=== PATIENT | female | born 2000 | race African-American/Black ===

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

== ENCOUNTER 2020-01-05 12:45 | Emergency (ER) | payer OTHER ==
[~2020-01-05] VITALS: Ht 165.1 cm; Wt 49.0 kg
[~2020-01-05 12:45] MED LIST changes: +AZITHROMYCIN 2250 MG PO
[2020-01-05 12:47] VITALS: BP 124/65
[2020-01-05 13:31] LABS: URINE BILIRUBIN NEGATIVE (Negative); URINE BLOOD TRACE (Negative); URINE CLARITY SL CLOUDY; URINE COLOR YELLOW; URINE GLUCOSE-RANDOM* NEGATIVE (Negative); URINE KETONES 1+ (Negative); URINE NITRITE-REFLEX NEGATIVE (Negative); URINE PROTEIN (DIPSTICK) TRACE (Negative)
[2020-01-05 13:34] LABS: URINE LEUKOCYTES-REFLEX 3+ (Negative)
[2020-01-05] MEDS ORDERED: DIFLUCAN150 MG PO (13:37)
[2020-01-05] MEDS ORDERED: MACROBID 100 M100 M1 PO (13:37)
[2020-01-05 13:44] LABS: SQUAMOUS >10 Many /LPF (0-3)
[2020-01-05 13:45] LABS: BACTERIA-REFLEX >30 Many /HPF (None Seen); CASTS None Seen /LPF (None Seen); URINE RBC 0-2 Rare /HPF (0-2); URINE WBC-REFLEX >25 Many /HPF (0-5); YEAST-REFLEX Present (None Seen)
[2020-01-05 13:46] LABS: CRYSTALS None Seen /LPF (None Seen)
== END 2020-01-05 13:40 | disposition home or self-care (01) ==
LOC: ER 12:45
PROVIDERS: Physician Assistant
DX: B37.3 Candidiasis of vulva and vagina (principal); N39.0 Urinary tract infection, site not specified; Z79.2 Long term (current) use of antibiotics

== ENCOUNTER 2020-05-05 18:40 | Emergency (ER) | payer OTHER ==
[~2020-05-05] VITALS: Ht 165.1 cm; Wt 52.2 kg
[~2020-05-05 18:40] MED LIST changes: +MACROBID 100 M100 M1 PO
[2020-05-05 19:04] LABS: URINE BILIRUBIN NEGATIVE (Negative); URINE BLOOD NEGATIVE (Negative); URINE CLARITY CLEAR; URINE COLOR YELLOW; URINE GLUCOSE-RANDOM* NEGATIVE (Negative); URINE KETONES NEGATIVE (Negative); URINE LEUKOCYTES-REFLEX TRACE (Negative); URINE NITRITE-REFLEX NEGATIVE (Negative); URINE PROTEIN (DIPSTICK) TRACE (Negative)
[2020-05-05 20:03] VITALS: BP 121/68
== END 2020-05-05 20:03 | disposition home or self-care (01) ==
LOC: ER 18:40
PROVIDERS: Physician Assistant
DX: N76.0 Acute vaginitis (principal); Z79.899 Other long term (current) drug therapy

== ENCOUNTER 2020-07-04 22:51 | Emergency (ER) | payer OTHER ==
[~2020-07-04] VITALS: Ht 162.6 cm; Wt 49.9 kg
[2020-07-05 00:11] VITALS: BP 118/75
== END 2020-07-05 00:11 | disposition home or self-care (01) ==
LOC: ER 22:51
DX: S09.90XA Unspecified injury of head, initial encounter (principal); H57.12 Ocular pain, left eye; W50.0XXA Accidental hit or strike by another person, initial encounter; Y93.89 Activity, other specified; Y92.098 Other place in other non-institutional residence as the place of occurrence of the external cause; Y99.8 Other external cause status

== ENCOUNTER 2021-03-12 | Emergency (ER) | payer OTHER ==
[~2021-03-12] VITALS: Ht 165.1 cm; Wt 49.0 kg
[2021-03-12 00:29] LABS: URINE BILIRUBIN NEGATIVE (Negative); URINE BLOOD 3+ (Negative); URINE CLARITY CLEAR; URINE COLOR YELLOW; URINE GLUCOSE-RANDOM* NEGATIVE (Negative); URINE KETONES NEGATIVE (Negative); URINE LEUKOCYTES-REFLEX NEGATIVE (Negative); URINE NITRITE-REFLEX NEGATIVE (Negative); URINE PROTEIN (DIPSTICK) TRACE (Negative); URINE SPECIFIC GRAVITY 1.025 (1.005-1.035); URINE UROBILINOGEN 0.2 E.U./dl (0.2-1.0)
[2021-03-12 00:45] LABS: BACTERIA-REFLEX 1-9 Few /HPF (None Seen); CASTS None Seen /LPF (None Seen); CRYSTALS None Seen /LPF (None Seen); MUCUS 4-6 Moderate strn/LPF (None Seen); SQUAMOUS 0-3 Few /LPF (0-3); URINE WBC-REFLEX 0-5 Rare /HPF (0-5)
[2021-03-12 02:30] VITALS: BP 134/61
== END 2021-03-12 02:31 | disposition home or self-care (01) ==
LOC: ER
PROVIDERS: Emergency Medicine
DX: N93.8 Other specified abnormal uterine and vaginal bleeding (principal); F12.90 Cannabis use, unspecified, uncomplicated